=== PATIENT | female | born 1970 | race Caucasian/White ===

== ENCOUNTER 2022-12-28 12:55 | Emergency (ER) | payer SELFPAY ==
--- OUTSIDE RECORDS SUMMARY | 2022-12-28 12:58 | XMS REPORT | Continuity of Care Document ---
:1970 Author Organization [facility] t Address [address] [place] [address] [place] [id number] Care Team Providers Name Role Phone Asked, No Pcp Primary Care Physician Unavailable BLANE PAL Attending Clinician Unavailable FRANKY DAWSON Attending Clinician Unavailable Problems This patient has no known problems. Allergies, Adverse Reactions, Alerts This patient has no known allergies or adverse reactions. Social History Social Habit Start Date Stop Date Quantity Comments Source Sexual orientation [facility] Gender identity [facility] Alcohol intake 2020-01-24 2020-01-24 Lifetime [facility] 00:00:00 00:00:00 non-drinker Hospital (finding) History of Social 2020-01-24 2020-01-[address] function 00:00:00 00:00:00 Hospital Tobacco use and 2019-07-12 2019-07-12 Smokeless [facility] exposure 00:00:00 00:00:00 tobacco non-user Hospital Sex Assigned At [birth year] [facility] 00:00:00 00:00:00 Hospital Smoking Status Start Date Stop Date Source Never smoked tobacco [facility] Medications This patient has no known medications. Immunizations Ordered Immunization Filled Immunization Date Status Commen ts Source Name Name Tdap 2020-01-24 Completed [facility] 00:[facility]:00 Hospital Procedures This patient has no known procedures. Plan of Care Planned Activity Planned Date Details Comments Source Future Scheduled 2022-11-14 SHINGLES VACCINES (1 Met [facility] Test 19:16:49 of 2) [code = SHINGLES VACCINES (1 of 2)] Future Scheduled 2022-11-14 INFLUENZA VACCINE [facility] Test 19:16:49 [code = INFLUENZA VACCINE] Future Scheduled 2022-11-14 COVID-19 VACCINE (#1) [facility] Test 19:16:49 [code = COVID-19 VACCINE (#1)] Future Scheduled 2022-11-14 Hepatitis C screening [facility] Test 19:16:49 (procedure) [code = 415923334] Future Scheduled 2022-11-14 Screening for [facility] Test 19:16:49 malignant neoplasm of cervix (procedure) [code = 965983257] Future Scheduled 2022-11-14 BREAST CANCER [facility] Test 19:16:49 SCREENING [code = BREAST CANCER SCREENING] Future Scheduled 2022-11-14 COLONOSCOPY SCREENING [facility] Test 19:16:49 [code = COLONOSCOPY SCREENING] Encounters Start End Encounter Admission Attending Care Care Encounter Source Date/Time Date/Time Type Type Clinicians Facility Department ID 2020-01-24 2020-01-24 Emergency [facility], [facility] [id number] [place] 00:00:00 00:00:00 BLANE [facility] 2019-07-12 2019-07-12 Emergency FRANKY DAWSON [facility]4 [id number] [place] 00:00:00 00:00:[address] Results This patient has no known results.
--- NOTE | 2022-12-28 14:54 | RAD REPORT ---
EXAM DESCRIPTION: RAD - Chest Single View - 12/28/2022 2:18 pm CLINICAL HISTORY: CHEST PAIN Chest pain. COMPARISON: Chest Single View dated 09/04/2017; CHEST SINGLE VIEW dated 09/16/2012; CHEST PA AND LAT 2 VIEW dated 11/08/2006 FINDINGS: Portable technique limits examination quality. The lungs are grossly clear. The heart is normal in size. No displaced fractures. IMPRESSION: No acute intrathoracic process suspected.
[2022-12-28 15:20] LABS: Absolute Lymphocytes (CBC) 1.1 K/uL (0.7-4.9); Hematocrit 44.5 % (36.0-45.0); Lymphocytes % 13.1 % (15.3-44.8); MCV 104.8 fL (80-100); MPV 8.4 fL (7.6-11.3); RBC Red Blood Cell Count 4.25 M/uL (3.86-4.86)
[2022-12-28 15:36] LABS: Potassium 3.9 mEq/L (3.5-5.1); Troponin High Sensitivity 6.4 pg/mL (<58.9)
--- NOTE | 2022-12-28 15:46 | ER ---
Nurse's Notes [facility] Name: Radha Spear Age: 52 yrs Sex: Female : 1970 Arrival Date: 12/28/2022 Time: 12:55 Bed DIS2 Private MD: Diagnosis: Other specified disorders of teeth and supporting structures;Chest pain, unspecified Presentation: 12/28 13:40 Chief complaint: Left upper molar pain since last night, intermittent sharp substernal hb chest pain since this morning. Denies fever/nausea/SOB. 13:41 Coronavirus screen: At this time, the client does not indicate any symptoms associated hb with coronavirus-19. Ebola Screen: No symptoms or risks identified at this time. Initial Sepsis Screen: Does the patient meet any 2 criteria? No. Patient's initial sepsis screen is negative. Does the patient have a suspected source of infection? No. Patient's initial sepsis screen is negative. Risk Assessment: Do you want to hurt yourself or someone else? Patient reports no desire to harm self or others. Onset of symptoms was December 27, 2022. 13:41 Method Of Arrival: Ambulatory hb 13:41 Acuity: ELEUTERIO 3 hb Triage Assessment: 13:43 General: Appears in no apparent distress. Behavior is calm, cooperative. Pain: Pain hb currently is 5 out of 10 on a pain scale. EENT: Reports left upper molar pain. Neuro: Level of Consciousness is awake, alert, obeys commands, Oriented to person, place, time, situation. Cardiovascular: Patient's skin is warm and dry. Respiratory: Respiratory effort is even, unlabored, Respiratory pattern is regular, symmetrical. 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 - Social history:: Smoking status: Patient denies any tobacco usage or history of. Vital Signs: 13:41 BP 128 / 82; Pulse 86; Resp 16; Temp 98.1; Pulse Ox 98% on R/A; Weight 77.11 kg; Height hb 5 ft. 5 in. ; Pain 5/10; 13:41 Body Mass Index 28.29 (77.11 kg, 165.1 cm) hb 13:41 Pain Scale: Adult hb ED Course: 12:56 Patient arrived in ED. rg4 13:00 Leda Parisi FNP-C [facility] heidi 13:00 Albin Tejeda MD is Attending Physician. kb 13:42 Triage completed. hb 13:42 Arm band placed on. hb 14:18 XRAY Chest (1 view) In Process Unspecified. EDMS 15:00 Initial lab(s) drawn, by ED staff, sent to lab. jl7 15:01 Missed attempt(s): 22 gauge in right antecubital area. zm 16:07 Leoanrd Espana, RN is Primary Nurse. jl7 16:07 Patient has correct armband on for positive identification. jl7 16:11 No provider procedures requiring assistance completed. IV discontinued, intact, jl7 bleeding controlled, No redness/swelling at site. Pressure dressing applied. Administered Medications: No medications were administered Medication: 16:12 VIS not applicable for this client. jl7 Outcome: 15:46 Discharge ordered by MD. kb 16:12 Discharged to home ambulatory. jl7 16:12 Condition: stable 16:12 Discharge instructions given to patient, Instructed on discharge instructions, follow up and referral plans. medication usage, Demonstrated understanding of instructions, follow-up care, medications, Prescriptions given X 1. 16:12 Patient left the ED. jl7 Signatures: Dispatcher [employer] EDWY Leda Parisi FNP-C FNP-Landy Stovall RN RN hb Garcia, Rubi rg4 Leonard Espana, MARLON RN jl7 Sherie Ken Corrections: (The following items were deleted from the chart) 13:42 13:40 Chief complaint: Toothache since last night, chest pain since this morning, hb denies fever/nausea/SOB hb 13:44 13:40 Chief complaint: Toothache since last night, intermittent sharp substernal chest hb pain since this morning. Denies fever/nausea/SOB hb 13:45 13:41 77.11 kg; Height 5 ft. 5 in.; BMI: 28.2; Pain 5/10, Adult; hb hb
--- NOTE | 2022-12-28 15:46 | EDPHYS ---
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 - Social history:: Smoking status: Patient denies any tobacco usage or history of. Exam: 14:48 ECG was reviewed by the Attending Physician. kb Vital Signs: 13:41 BP 128 / 82; Pulse 86; Resp 16; Temp 98.1; Pulse Ox 98% on R/A; Weight 77.11 kg; Height hb 5 ft. 5 in. ; Pain 5/10; 13:41 Body Mass Index 28.29 (77.11 kg, 165.1 cm) hb 13:41 Pain Scale: Adult hb MDM: 13:00 Patient medically screened. kb 12/28 13:24 Order name: Basic Metabolic Panel; Complete Time: 15:37 kb 12/28 13:24 Order name: CBC with Diff; Complete Time: 15:24 kb 12/28 13:24 Order name: Magnesium; Complete Time: 15:37 kb 12/28 13:24 Order name: Troponin HS; Complete Time: 15:37 kb 12/28 13:24 Order name: XRAY Chest (1 view); Complete Time: 15:05 kb 12/28 13:24 Order name: EKG; Complete Time: 13:25 kb 12/28 13:24 Order name: Cardiac monitoring; Complete Time: 15:12 kb 12/28 13:24 Order name: EKG - Nurse/Tech; Complete Time: 13:44 kb 12/28 13:24 Order name: IV Saline Lock; Complete Time: 15:06 kb 12/28 13:24 Order name: Labs collected and sent; Complete Time: 15:06 kb 12/28 13:24 Order name: O2 Per Protocol; Complete Time: 15:06 kb 12/28 13:24 Order name: O2 Sat Monitoring; Complete Time: 15:06 kb EC:48 Rate is 86 beats/min. Rhythm is regular. QRS Aroda is Normal. IA interval is normal at kb 124 msec. QRS interval is normal at 84 msec. QT interval is normal at 392 msec. Administered Medications: No medications were administered Disposition Summary: 12/28/22 15:46 Discharge Ordered Location: Home kb Condition: Stable kb Diagnosis - Other specified disorders of teeth and supporting structures kb - Chest pain, unspecified kb Followup: kb - With: Emergency Department - When: As needed - Reason: Worsening of condition Followup: kb - With: Private Physician - When: 2 - 3 days - Reason: Recheck today's complaints, Continuance of care, Re-evaluation by your physician Discharge Instructions: - Discharge Summary Sheet kb - Nonspecific Chest Pain, Adult, [id number] kb - Dental Abscess, [id number]-[id number] kb Forms: - Medication Reconciliation Form kb - Thank You Letter kb - Antibiotic Education kb - Prescription Opioid Use kb Prescriptions: - Augmentin 875-125 mg Oral Tablet - take 1 tablet by ORAL route every 12 hours for 10 days; 20 tablet; Refills: 0, kb Product Selection Permitted Signatures: Dispatcher [employer] Leda Meraz, MEDICAL SONOGRAPHER-C MEDICAL SONOGRAPHER-Caseyb Landy Enriquez, RN RN
[2022-12-28 16:49] VITALS: BP 128/82; TEMP 98.1; O2SAT 98
--- NOTE | 2022-12-30 17:35 | EKG ---
Test Date: 2022-12-28 Test Time: 13:47:00 Psychometrician: CAS MEASUREMENT RESULTS: Intervals: Rate: 86 CA: 124 QRSD: 84 QT: 328 QTc: 392 [place]ley: P: 74 CA: 124 QRS: 65 T: 66 INTERPRETIVE STATEMENTS: Normal sinus rhythm Normal ECG Compared to ECG 09/04/2017 00:58:34 No significant changes Electronically Signed On 12-30-22 17:34:02 CDT by Braxton Gay
== END 2022-12-28 16:12 | disposition home or self-care (01) ==
LOC: ER 12:55
DX: K08.9 Disorder of teeth and supporting structures, unspecified (principal); R07.9 Chest pain, unspecified
CPT/HCPCS: 36415; 71045; 80048; 83735; 84484; 85025; 93005